=== PATIENT | male | born 1965 | race Caucasian/White ===

== ENCOUNTER 2022-02-27 11:49 | Emergency (ER) | payer BC, OTHER ==
[2022-02-27 12:05] VITALS: BP 136/89; PULSE 74; RESP 16; TEMP 98.3; BMI 36.9
== END 2022-02-27 14:23 | disposition home or self-care (01) ==
LOC: JERFT 11:49
DX: M79.671 Pain in right foot (principal); M77.31 Calcaneal spur, right foot; M65.20 Calcific tendinitis, unspecified site
CPT/HCPCS: 73610-TC-RT-FY; 73630-TC-RT-FY; 99284-25